=== PATIENT | female | born 1980 | race Caucasian/White ===

== ENCOUNTER 2018-09-07 00:34 | Inpatient (IN) | payer OTHER ==
[~2018-09-07] VITALS: Ht 172.7 cm; Wt 95.3 kg
[2018-09-07] VITALS (7 sets, daily range): BP systolic 98–143; BP diastolic 59–100
[~2018-09-07 00:34] MED LIST: FIRST-PROGESTE200 MG VG; PRENATAL
[2018-09-07 02:17] LABS: ABSOLUTE BASOPHILS 0.1 thou/uL (0.0-0.2); ABSOLUTE EOSINOPHILS 0.1 thou/uL (0.0-0.7); ABSOLUTE LYMPHOCYTES 2.9 thou/uL (0.8-5.3); ABSOLUTE MONOCYTES 0.6 thou/uL (0.0-1.2); ABSOLUTE NEUTROPHILS 3.1 thou/uL (1.6-8.1); BASOPHILS 0.8 %; EOSINOPHILS 1.5 %; HEMATOCRIT 41.6 % (37.0-47.0); LYMPHOCYTES 42.5 %; MCH 30.6 pg (26.0-34.0); MCHC 33.7 g/dL (28.0-37.0); MCV 90.8 fL (80.0-100.0); MONOCYTES 9.1 %; MPV 8.4 fl. (7.2-11.1); NUCLEATED RBCS 0 /100WBC; PLATELET COUNT* 289 thou/uL (150-400); POLYS 46.1 %; RBC 4.58 mil/uL (4.20-5.00); WBC 6.8 thou/uL (4.0-11.0)
[2018-09-07 02:21] LABS: CREATININE 0.8 mg/dL (0.6-1.3); POTASSIUM 3.6 mmol/L (3.5-5.1)
[2018-09-07 02:26] LABS: TOTAL BILIRUBIN 0.3 mg/dL (<0.1-1.0)
[2018-09-07 02:35] LABS: URINE BILIRUBIN NEGATIVE (Negative); URINE BLOOD 3+ (Negative); URINE CLARITY CLOUDY; URINE COLOR YELLOW; URINE GLUCOSE-RANDOM NEGATIVE (Negative); URINE KETONES NEGATIVE (Negative); URINE LEUKOCYTES-REFLEX TRACE (Negative); URINE NITRITE-REFLEX NEGATIVE (Negative); URINE PROTEIN 1+ (Negative); URINE SPECIFIC GRAVITY >= 1.030 (1.005-1.030)
[2018-09-07 02:49] LABS: AMP/METHAMP Negative (Negative); BARBITURATES Negative (Negative); BENZODIAZEPINES Negative (Negative); COCAINE Negative (Negative); METHADONE Negative (Negative); OPIATES POSITIVE (Negative); PCP Negative (Negative); THC Negative (Negative)
[2018-09-07 02:51] LABS: SQUAMOUS >10 Many /LPF (0-3)
[2018-09-07 02:52] LABS: CASTS None Seen /LPF (None Seen); URINE RBC >20 Many /HPF (0-2); URINE WBC-REFLEX 0-5 Rare /HPF (0-5)
[2018-09-07 02:53] LABS: CALCIUM OXALATE 0-3 Few /LPF (None Seen); YEAST-REFLEX Present (None Seen)
[2018-09-07] MEDS ORDERED: ZOFRAN4 MG PO (17:10)
[2018-09-07] MEDS ORDERED: OXYCODONE HCL 55 MG PO (17:15)
[2018-09-07] MEDS ORDERED: CIPRO500 MG PO (17:17)
[2018-09-07] MEDS ORDERED: IBUPROFEN200 MG PO (17:19)
== END 2018-09-07 17:55 | disposition home or self-care (01) | DRG 690 ==
LOC: M.ERS 00:34 → M.ORTHSURG 02:52 → M.TBA-ER 02:52 → M.ORTHSURG 07:16
PROVIDERS: Emergency Medicine; ADMIT Internal Medicine
DX: N13.6 Pyonephrosis (principal)